=== PATIENT | male | born 1965 | race Caucasian/White ===

== ENCOUNTER 2016-05-09 22:15 | Observation (INO) | payer OTHER ==
[~2016-05-09] VITALS: Ht 182.9 cm; Wt 110.9 kg
[~2016-05-09 22:15] MED LIST: LOPRESSOR25 MG PO; PANTOPRAZOLE SO40 MG PO; SIMVASTATIN40 MG PO
[2016-05-10] VITALS (9 sets, daily range): BP systolic 106–132; BP diastolic 71–89
--- NOTE | 2016-05-10 04:10 | ED CLINICAL REPORT ---
Clinical Report - Physicians/Mid Levels [facility] [address] [place] [address] 05/09/2016 22:16 Patient: VAN GAN Time Seen: 22:29. Arrived- By private vehicle. Historian- patient. HISTORY OF PRESENT ILLNESS Chief Complaint: RIGHT FLANK PAIN. This started about 2 weeks ago and is still present. The problem is described as severe. It was abrupt in onset and has been intermittent and waxing/waning. No discomfort with urination, urinary frequency, testicular pain or urgency of urination. He has had severe, sharp, crampy right-sided flank pain. Similar symptoms previously: Once. Diagnosis: (unknown). REVIEW OF SYSTEMS No chills, fever, sweats, calf pain or chest pain. No cough, pedal edema, palpitations, black stools or bloody stools. No constipation, diarrhea or urinary problems. He has had nausea. He has had vomiting. The vomiting has occurred twice. No blood-tinged emesis, coffee-grounds emesis or frankly bloody emesis. All systems otherwise negative, except as recorded above. PAST HISTORY ( PCP - Ree Manning). Problems: Abdominal Pain. Hypertension. Contusion. Gastroesophageal Reflux Disease. Myocardial Infarction. Additional Surgeries: Angiogram. Hernia Repair. Knee Surgery. Medications: ASA Oral. Lopressor Oral 25mg, 2x a day. Pantoprazole Sodium Oral. Prochlorperazine. Simvastatin Oral (Tablet 40 mg) 1 tablet, daily. Allergies: None. SOCIAL HISTORY Current some days smoker (cigarette). Occasional alcohol use. No drug use. Is a local resident. He lives with spouse. FAMILY HISTORY Heart disease in first-degree relative (mother and father). ADDITIONAL NOTES The nursing notes have been reviewed. PHYSICAL EXAM Vital Signs: 05/09/2016 22:22 BP: 114/77. HR: 70. RR: 16. O2 saturation: 98%. Temp: 98.2 F. Pain level now: 10/10. Have been reviewed. Appearance: Alert. ENT: Pharynx normal. Neck: Neck supple. CVS: Heart sounds normal. Respiratory: No respiratory distress. Breath sounds normal. Abdomen: Soft. Mild tenderness in the right upper quadrant. Bowel sounds normal. No organomegaly. No mass. Back: Normal external inspection. Skin: Skin warm and dry. Normal skin color. Normal skin turgor. Extremities: Extremities exhibit normal ROM. No calf tenderness. No lower extremity edema. LABS, X-RAYS, AND EKG Abdominal CT: mildly thick walled enhancing gallbladder with suspicion of slight intraluminal sludge and trace pericholecystic fluid. This is per [employer] [facility]'s preliminary report. The study was interpreted by the radiologist and contemporaneously by me. Abdominal Sonogram: (indings consistent with acute cholecystitis with gallbladder wall thickening at 4-5 mm as well as hyperemia. No pericholecystic fluid noted. Common bile duct not well visualized however measures approximately 5 mm. Incidental renal cysts on the right noted.). The study was independently viewed by me. Laboratory Tests: UA-Culture if indicated: (GUY: 05/09/2016 23:40) ( KygRcvd 05/10/2016 00:00) Final results Test Result Flag Units (Reference) URINE COLOR YELLOW URINE APPEARANCE CLEAR URINE GLUCOSE NEGATIVE (NEGATIVE) URINE BILIRUBIN NEGATIVE (NEGATIVE) URINE KETONE NEGATIVE (NEGATIVE) URINE SPECIFIC GRAVITY >= 1.030 (1.010-1.030) URINE PH 6.0 (5.0-8.0) URINE PROTEIN TRACE (NEGATIVE) URINE UROBILINOGEN 1.0 EU/dL (0.2-1.0) URINE NITRITE NEGATIVE (NEGATIVE) URINE BLOOD NEGATIVE (NEGATIVE) URINE LEUK ESTERASE NEGATIVE (NEGATIVE) URINE RBC 0-1 rbc/hpf (0-1) URINE WBC 0-1 wbc/hpf (0-1) URINE EPITHELIAL CELLS 0-1 EPI/hpf (0-5) URINE BACTERIA TRACE (<1+) (NONE SEEN) URINE COMMENT CULT NOT INDICATED 2+ MUCOUSURINE CULTURES ARE SET-UP BASED ON THE FOLLOWING CRITERIA:POSITIVE NITRITEPOSITIVE LEUKOCYTE ESTERASEGREATER THAN 10 WHITE BLOOD CELLSMODERATE (2+) OR GREATER BACTERIA CBC w Diff: (GUY: 05/09/2016 22:30) ( Mscvd 05/09/2016 23:40) Final results Test Result Flag Units (Reference) WHITE BLOOD COUNT 6.4 K/uL (4.5-11.5) RED BLOOD COUNT 5.20 M/uL (4.50-5.90) HEMOGLOBIN 16.6 gm/dL (13.5-17.5) HEMATOCRIT 50.5 % (41.0-53.0) MEAN CELL VOLUME 97 fL (80-100) MEAN CORPUSCULAR HGB 32 pg (26-34) MEAN CORPUSCULAR HGB CONC 33 g/dL (31-37) RED CELL DISTRIBUTION WIDTH 13.3 % (11.6-14.8) PLATELET COUNT 149 L K/uL (150-400) LYMPH % 27.9 % (25-40) MONO % 6.4 % (3-14) GRANULOCYTE % 65.7 CMP: (GUY: 05/09/2016 22:30) ( MsgRcvd 05/09/2016 23:49) Final results Test Result Flag Units (Reference) GLUCOSE 104 mg/dL (70-110) BUN 19 H mg/dL (7-18) CREATININE 0.9 mg/dL (0.6-1.3) Estimated GFR >60 mL/min Estimated GFR- >60 mL/min Note: Persistent reduction over 3 months in eGFR<60 mL/min/1.73 m2 defines CKD. Patients with eGFR values>=60 mL/min/1.73 m2 may also have CKD if evidence ofpersistent proteinuria. Additional information may be foundat [email or web address].org. SODIUM 143 mmol/L (136-145) POTASSIUM 3.7 mmol/L (3.5-5.1) CHLORIDE 108 H mmol/L (98-107) CARBON DIOXIDE 24 mmol/L (21-32) CALCIUM 8.3 L mg/dL (8.5-10.1) TOTAL PROTEIN 7.3 g/dL (6.4-8.2) ALBUMIN 3.9 g/dL (3.3-5.0) BILIRUBIN, TOTAL 0.5 mg/dL (0.0-1.0) ALKALINE PHOSPHATASE 87 U/L (46-116) AST (SGOT) 21 U/L (15-37) ALT (SGPT) 49 U/L (12-78) LIPASE 135 U/L (73-393) AMYLASE 36 U/L (25-115) Urine Drug Screen: (GUY: 05/09/2016 23:40) ( MsgRcvd 05/09/2016 23:59) Final results Test Result Flag Units (Reference) AMPHETAMINE/METHAMPHETAMINE NEGATIVE (NEGATIVE) BARBITURATE NEGATIVE (NEGATIVE) BENZODIAZEPINE NEGATIVE (NEGATIVE) CANNABINOID NEGATIVE (NEGATIVE) COCAINE NEGATIVE (NEGATIVE) ECSTASY NEGATIVE (NEGATIVE) METHADONE NEGATIVE (NEGATIVE) OPIATE NEGATIVE (NEGATIVE) The urine drug screen is a qualitative screening test fordrug overdose and abuse. All screen results should beconsidered as presumptive.Drugs screened for are as follows:BenzodiazepinesCocaineAmphetamines/MetamphetaminesTHC (Tetrahydrocannabinol)OpiatesBarbituratesEcstasyMethadonePositive results are unconfirmed. For confirmation, notifythe lab for the specimen to be sent to the reference lab.All confirmations must be performed by a differentmethodology.The ingestion of natural herbal and plant productscontaining Ephedra/Ephedra metabolites can produce in urineone or more substances capable of cross reacting withamphetamine/methamphetamine immunoassays. These testsprovide a preliminary result only. A more specificalternative chemical method must be used to obtain aconfirmed analytical result. . PROGRESS AND PROCEDURES Course of Care: EXAM(S): US ABDOMEN ULTRASOUND - LIMITED DATE OF EXAM(S): 01/23/2015 PROCEDURE: US ABDOMEN ULTRASOUND - LIMITED INDICATIONS: RUQ PAIN TECHNIQUE: Haley-scale and Color Doppler sonographic images of the right upper quadrant of the abdomen were obtained. COMPARISON: None. FINDINGS: The liver is normal in size, and contour, but diffusely increased in echotexture. No intrahepatic biliary dilatation. The retrohepatic inferior vena cava and portal vein demonstrate patency and appropriate direction of flow. The gallbladder is normal without stones or sludge. The wall thickness measures 1.7 mm . The extrahepatic common duct measures 5.1 mm . There is no pericholecystic fluid or Donato's sign. The abdominal aorta is normal caliber. The pancreas was not well seen. The right kidney measures 11.7 cm in length. Multiple cysts, largest measuring 3.4 cm. No hydronephrosis or stone. No free fluid in the right upper quadrant. IMPRESSION: 1. Normal gallbladder. 2. Mild hepatic steatosis. 3. Right renal cysts. 4. Nonvisualization of the pancreas. Electronically signed by: DANDRE ORDAZ MD 01/24/2015 01:18. Consult obtained from surgery. Papa. Case discussed. Phone consult only. Will see patient in the hospital. Patient/family counseled. Old medical records reviewed. Disposition orders written (in [facility] and Dr. Elam's cholecystectomy orders have been completed). Disposition: Admitted. Observation. CLINICAL IMPRESSION Acute cholecystitis. (Electronically signed by Taqueria Burrell MD 05/10/2016 6:48)
--- NOTE | 2016-05-10 04:10 | ED ORDER SUMMARY ---
..... Patient: VAN GAN OrderSheet Merged With [facility] VisitID: [id number] [place] [address] 50y, M Registration Date/Time: 05/09/2016 ORDER SHEET Weight: 107.9 kg (stated) Allergies: None GENERAL ORDERS: UA-Culture if indicated Urgent (22:29 05/09/2016 Risa AVENDANO) (Ack 22:38 SRedmond) (23:43 CHagshashank ER Combiner Operator) Urine Drug Screen Urgent (23:12 05/09/2016 Risa AVENDANO) (Ack 23:15 CHagshashank ER Combiner Operator) (23:43 Lyric ER Combiner Operator) CBC w Diff Urgent (23:33 05/09/2016 Risa AVENDANO) (Ack 23:34 SRemallory) (23:43 Phoebeelli R.N.) CMP Urgent (23:33 05/09/2016 Risa AVENDANO) (Ack 23:34 SRemelissaond) (23:43 Phoebeelli R.N.) Amylase Urgent (23:33 05/09/2016 Risa AVENDANO) (Ack 23:34 SRemelissaond) (23:43 Phoebeelli R.N.) Lipase Urgent (23:33 05/09/2016 Risa AVENDANO) (Ack 23:34 SRemallory) (23:43 Phoebeelli R.N.) CT Abd/Pel w Cont (No) (See report) Urgent (00:54 05/10/2016 Risa AVENDANO) (Ack 0:59 Lyric ER Combiner Operator) (1:20 Lyric ER Combiner Operator) US Abdomen Limited (Yes) Urgent (02:08 05/10/2016 Risa AVENDANO) (Ack 2:14 SRedmond) (4:50 Adalberto) Blood Culture (No) (N/A) Urgent (04:05 05/10/2016 Risa AVENDANO) (Ack 4:09 SRedmond) (5:03 Phoebeelli R.N.) MEDICATION ORDERS: IV FLUIDS: IV Saline Lock (22:34 05/09/2016 Aroldo R.N. verbal order read back to Risa AVENDANO) (22:35 Phoebeelli R.N.) IV NS : initial bolus 1000 mL (1000 mL/hr), then 150 mL/hr for 4h (NOW); Urgent (22:46 05/09/2016 Risa AVENDANO) (22:57 Aroldo FitzgeraldN.) Toradol IV 30 mg (NOW) (23:23 05/09/2016 Risa AVENDANO) (23:43 Aroldo R.N.) Zofran IV 4 mg (NOW) (00:00 05/10/2016 Aroldo Mireles.N. verbal order read back to Risa AVENDANO) (0:01 Aroldo R.N.) Dilaudid IV 0.5 mg (HIGH ALERT MEDICATION, NOW) (00:02 05/10/2016 Aroldo FitzgeraldNIra verbal order read back to Risa AVENDANO) (0:03 Aroldo Mireles.N.) Cefotetan IV 1 gm (NOW) (04:05 05/10/2016 Risa AVENDANO) (4:51 Aroldo R.N.) IV Lactated Ringers : initial bolus none -, then 150 mL/hr (NOW) (05:04 05/10/2016 Aroldo Mireles.N. verbal order read back to Risa AVENDANO) (5:06 Aroldo R.N.) ORDER SHEET NOTES: [Electronically signed by Gomez Cesar R.N. (05:43 05/10/2016)] [Electronically signed by Taqueria Burrell MD (06:48 05/10/2016)] [Electronically locked/signed by Gomez Cesar R.N. (05:43 05/10/2016)]
--- NOTE | 2016-05-10 04:10 | ED NURSING NOTES ---
Clinical Report - Nurses [facility] [address] [place] [address] 05/09/2016 22:16 Patient: VAN GAN TRIAGE Triage time 22:20 May 09 2016. Acuity: LEVEL 3. Chief Complaint: ABDOMINAL PAIN, NAUSEA and VOMITING. Alert. NIESHA COMA SCORE: Niesha Coma Scale: 15- eyes open spontaneously (4); best verbal response- oriented x 4 (5); best motor response- obeys commands (6). --22:32 Gomez Cesar R.N. 22:22 05/09/16. BP: 114/77. HR: 70. RR: 16. O2 saturation: 98% on room air. Temp: 98.2 F. Pain level now: 11/27. Additional comments: RUQ abdominal pain. --22:32 Gomez Cesar R.N. Weight: 107.9 kg stated. Height/Length: 72 inches Per Patient. BMI: 32.3. --22:25 Gomez Cesar R.N. Medications ASA Oral. Lopressor Oral 25mg, 2x a day. Pantoprazole Sodium Oral. Prochlorperazine. Simvastatin Oral (Tablet 40 mg) 1 tablet, daily. --22:27 Gomez Cesar R.N. Allergies None. --22:27 Gomez Cesar R.N. History Arrived by private vehicle. Historian: spouse and patient. Accompanied by spouse. Primary physician (Ree Manning, [facility]). ( RUQ Abdominal Pain radiating through/around to the back associated with N/V.). Onset. (about 2 weeks intermittently--today the pain pain started about 5 hours ago). He has had nausea and vomiting. Last oral intake by patient was (about 9 hours ago). 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 PAST MEDICAL HX: Immunizations: up-to-date. Has not received seasonal influenza immunization. SOCIAL HX: Light tobacco smoker (cigarette)- less than 1/2 a pack per day. No alcohol use or drug use. No recent travel. No infectious disease exposure. ABUSE ASSESSMENT: No report of abuse. FALL RISK ASSESSMENT: Fall risk assessment completed. No fall risk identified. NUTRITIONAL RISK ASSESSMENT: The nutritional risk assessment revealed no deficiencies. FUNCTIONAL ASSESSMENT: Functional assessment: no impairments noted. LEARNING NEEDS ASSESSMENT: The learning needs assessment revealed no barriers. SKIN INTEGRITY ASSESSMENT: Skin integrity risk assessment completed. No skin integrity risk identified. --22:32 Gomez Cesar R.N. The patient has had abdominal pain. --22:32 Gomez Cesar R.N. PROBLEMS: Abdominal Pain. Hypertension. Contusion. Gastroesophageal Reflux Disease. Myocardial Infarction. --22:29 Gomez Cesar R.N. Acute Myocardial Infarction [RuleOut]. Angina [RuleOut]. --22:29 Gomez Cesar R.N. ADDITIONAL SURGERIES: Angiogram. Hernia Repair. Knee Surgery. --22:29 Gomez Cesar R.N. Interventions ID band on patient. To treatment room. --22:32 Gomez Cesar R.N. PHYSICAL ASSESSMENT Ambulatory to room. GENERAL / NEURO / PSYCH: Alert. Oriented X 4. HEENT: Mucous membranes are pink. RESPIRATORY: Respirations not labored. CVS: Normal sinus rhythm noted. GI / : Abdomen soft. Abdominal tenderness in the right upper quadrant. Bowel sounds within normal limits. SKIN: Skin is warm and dry. --22:32 Gomez Cesar R.N. NURSING PROGRESS NOTES Patient gowned. Reassurance given. Patient identifiers checked. Call light placed in reach. Side rails up x 1. Bed placed in lowest position. Brakes of bed on. Patient ready for evaluation- chart flagged and ED physician notified. --22:33 Gomez Cesar R.N. 22:29 05/09/2016 Site #1 started via IV in the left wrist with an 20g angiocath, with aseptic technique and good blood return; one attempt. Blood drawn: rainbow set. Labeled in the presence of the patient and sent to the lab. Saline lock flushed with 10 mL saline (start by Rossana Hale RN). --22:35 Gomez Cesar R.N. 22:47 05/09/2016 Started bag #1 1000 mL IV Fluids IV NS (Saline); at 1000 mL/hr over 60 minute(s) via site #1. Allergies verified and confirmed 5 rights. IV patency established. IV site checked: no pain, redness, or swelling. IV flushed thoroughly pre- and post-medication administration. --22:57 Gomez Cesar R.N. 23:28 05/09/2016 Toradol IVP 30 mg given over 2 minute(s) via site #1. Allergies verified and confirmed 5 rights. IV patency established. IV site checked: no pain, redness, or swelling. IV flushed thoroughly pre- and post-medication administration. IVP given by RN. --23:43 Gomez Cesar R.N. Patient ID band checked for patient name and birthdate: patient confirmed. Clean catch urine collected with return of james-colored clear urine; sample sent to lab for urinalysis and drug screen. Specimen labeled in the presence of the patient. --23:43 Shai Cox ER Manual Arts Therapy Teacher 23:51 05/09/2016 Zofran (Ondansetron HCl) IVP 4 mg given over 2 minute(s) via site #1. Allergies verified and confirmed 5 rights. IV patency established. IV site checked: no pain, redness, or swelling. IV flushed thoroughly pre- and post-medication administration. IVP given by RN. --00:01 Gomez Cesar R.N. 23:58 05/09/2016 Dilaudid (HYDROmorphone HCl PF) IVP 0.5 mg given over 2 minute(s) via site #1. Allergies verified, confirmed 5 rights and sedative warning given to the patient. IV patency established. IV site checked: no pain, redness, or swelling. IV flushed thoroughly pre- and post-medication administration. IVP given by RN. --00:03 Gomez Cesar R.N. 01:00 05/10/16. BP: 111/70. HR: 68. RR: 16. O2 saturation: 94% on room air. Temp: 98 F (oral). Pain level now: 0/10. --02:12 Gomez Cesar R.N. Patient transported to OR by stretcher with tech. ([id number]). --02:22 Gomez Cesar R.N. 01:20. Patient returned from OR by stretcher with tech. --02:23 Gomez Cesar R.N. 03:00 05/10/16. BP: 106/63. HR: 68. RR: 16. O2 saturation: 92% on room air. --03:36 Gomez Cesar R.N. 03:55 05/10/16. BP: 101/66. HR: 66. RR: 16. O2 saturation: 93%. Pain level now: 02/27. --03:57 Gomez Cesar R.N. 00:05 05/10/2016 IV Fluids IV NS Bag Change: bag #1 infused. Total amount infused: 1000. STARTED bag #2 (1000 mL) at 150 mL/hr via IV pump. Confirmed 5 rights. IV patency established. IV site checked: no pain, redness, or swelling. IV flushed thoroughly. --04:21 Gomez Cesar R.N. Checked patient name, birthdate and visit number: patient confirmed. Blood samples drawn from the right antecubital space with 23g butterfly by tech ; labeled in presence of the patient and sent to lab: blood culture (1st set). --04:37 Timo Walter Checked patient name, birthdate and visit number: patient confirmed. Blood samples drawn from the left antecubital space with 23g butterfly by tech ; labeled in presence of the patient and sent to lab: blood culture (2nd set). --04:38 Timo Walter 04:30 05/10/2016 Started bag #1 1000 mL IV Fluids IV LACTATED RINGERS; at 150 mL/hr over 6 hour(s) via site #1 via IV pump. Allergies verified and confirmed 5 rights. IV patency established. IV site checked: no pain, redness, or swelling. IV flushed thoroughly pre- and post-medication administration. --05:06 Gomez Cesar R.N. <<STRICKEN ENTRY-- 04:30 05/10/2016 IV Fluids IV LACTATED RINGERS Bag Change: bag #2 infused. Total amount infused: 1000. STARTED bag #3 (1000 mL) at 150 mL/hr via IV pump. Confirmed 5 rights. IV patency established. IV site checked: no pain, redness, or swelling. IV flushed thoroughly. --05:15 Gomez Cesar R.N. --END STRIKE>> Correction. --05:25 Gomez Cesar R.N. 04:30 05/10/2016 IV Fluids IV LACTATED RINGERS Bag Change: bag #2 infused. Total amount infused: 1000. STARTED bag #3 (1000 mL) at 150 mL/hr via IV pump. Confirmed 5 rights. IV patency established. IV site checked: no pain, redness, or swelling. IV flushed thoroughly. (IV bag # 3--LR 1000mL). --05:25 Gomez Cesar R.N. 04:36 05/10/2016 Started 1 gm of CEFOTETAN IVPB in bag #1 50 mL; at 100 mL/hr over 30 minute(s) via site #1 via IV pump. Allergies verified and confirmed 5 rights. IV patency established. IV site checked: no pain, redness, or swelling. IV flushed thoroughly pre- and post-medication administration. --04:51 Gomez Cesar R.N. 04:48 05/10/2016 Site #[address] upon admission; patent, no pain and no signs of infection or infiltration. Good blood return present (IV infusing into site). --05:41 Gomez Cesar R.N. 05:00 05/10/2016 IV Fluids IV LACTATED RINGERS Continued: upon admission at the rate of 150 mL/hr. 950 mL remaining bag #3. IV patency established. IV site checked: no pain, redness, or swelling. IV flushed thoroughly. --05:09 Gomez Cesar R.N. 05:05 05/10/2016 CEFOTETAN IVPB Discontinued: bag #1 infused upon admission. Total amount infused: 50 mL. IV patency established. IV site checked: no pain, redness, or swelling. IV flushed thoroughly. --05:07 Gomez Cesar R.N. DISPOSITION / DISCHARGE 04:45 05/10/16. BP: 117/65. HR: 66 (regular). RR: 16. O2 saturation: 95%. Temp: 98.2 F (oral). Pain level now: 02/27. --04:48 Gomez Cesar R.N. Departure time: 04:48 May 10 2016. --04:48 Gomez Cesar R.N. 04:48. Transported via stretcher by nurse and transport team with monitor and IV. Report was given to a nurse via a phone call. Report included patient's care, treatment, medications, reviewed medication reconcilliation, and condition (including any recent changes or anticipated changes). All questions were answered. Report was acknowledged and care was transferred. Patient's personal items; items were placed in belongings bag and transported with the patient. --05:39 Gomez Cesar R.N. Locked/Released at 05/10/2016 5:43 by Gomez Cesar R.N.
--- NOTE | 2016-05-10 04:10 | ED CLINICAL REPORT ---
Clinical Report - Physicians/Mid Levels [facility] [address] [place] [address] 05/09/2016 22:16 Patient: VAN GAN Time Seen: 22:29. Arrived- By private vehicle. Historian- patient. HISTORY OF PRESENT ILLNESS Chief Complaint: RIGHT FLANK PAIN. This started about 2 weeks ago and is still present. The problem is described as severe. It was abrupt in onset and has been intermittent and waxing/waning. No discomfort with urination, urinary frequency, testicular pain or urgency of urination. He has had severe, sharp, crampy right-sided flank pain. Similar symptoms previously: Once. Diagnosis: (unknown). REVIEW OF SYSTEMS No chills, fever, sweats, calf pain or chest pain. No cough, pedal edema, palpitations, black stools or bloody stools. No constipation, diarrhea or urinary problems. He has had nausea. He has had vomiting. The vomiting has occurred twice. No blood-tinged emesis, coffee-grounds emesis or frankly bloody emesis. All systems otherwise negative, except as recorded above. PAST HISTORY ( PCP - eRe Manning). Problems: Abdominal Pain. Hypertension. Contusion. Gastroesophageal Reflux Disease. Myocardial Infarction. Additional Surgeries: Angiogram. Hernia Repair. Knee Surgery. Medications: ASA Oral. Lopressor Oral 25mg, 2x a day. Pantoprazole Sodium Oral. Prochlorperazine. Simvastatin Oral (Tablet 40 mg) 1 tablet, daily. Allergies: None. SOCIAL HISTORY Current some days smoker (cigarette). Occasional alcohol use. No drug use. Is a local resident. He lives with spouse. FAMILY HISTORY Heart disease in first-degree relative (mother and father). ADDITIONAL NOTES The nursing notes have been reviewed. PHYSICAL EXAM Vital Signs: 05/09/2016 22:22 BP: 114/77. HR: 70. RR: 16. O2 saturation: 98%. Temp: 98.2 F. Pain level now: 10/10. Have been reviewed. Appearance: Alert. ENT: Pharynx normal. Neck: Neck supple. CVS: Heart sounds normal. Respiratory: No respiratory distress. Breath sounds normal. Abdomen: Soft. Mild tenderness in the right upper quadrant. Bowel sounds normal. No organomegaly. No mass. Back: Normal external inspection. Skin: Skin warm and dry. Normal skin color. Normal skin turgor. Extremities: Extremities exhibit normal ROM. No calf tenderness. No lower extremity edema. LABS, X-RAYS, AND EKG Abdominal CT: mildly thick walled enhancing gallbladder with suspicion of slight intraluminal sludge and trace pericholecystic fluid. This is per [facility]'s preliminary report. The study was interpreted by the radiologist and contemporaneously by me. Abdominal Sonogram: (indings consistent with acute cholecystitis with gallbladder wall thickening at 4-5 mm as well as hyperemia. No pericholecystic fluid noted. Common bile duct not well visualized however measures approximately 5 mm. Incidental renal cysts on the right noted.). The study was independently viewed by me. Laboratory Tests: UA-Culture if indicated: (UGY: 05/09/2016 23:40) ( GagRcvd 05/10/2016 00:00) Final results Test Result Flag Units (Reference) URINE COLOR YELLOW URINE APPEARANCE CLEAR URINE GLUCOSE NEGATIVE (NEGATIVE) URINE BILIRUBIN NEGATIVE (NEGATIVE) URINE KETONE NEGATIVE (NEGATIVE) URINE SPECIFIC GRAVITY >= 1.030 (1.010-1.030) URINE PH 6.0 (5.0-8.0) URINE PROTEIN TRACE (NEGATIVE) URINE UROBILINOGEN 1.0 EU/dL (0.2-1.0) URINE NITRITE NEGATIVE (NEGATIVE) URINE BLOOD NEGATIVE (NEGATIVE) URINE LEUK ESTERASE NEGATIVE (NEGATIVE) URINE RBC 0-1 rbc/hpf (0-1) URINE WBC 0-1 wbc/hpf (0-1) URINE EPITHELIAL CELLS 0-1 EPI/hpf (0-5) URINE BACTERIA TRACE (<1+) (NONE SEEN) URINE COMMENT CULT NOT INDICATED 2+ MUCOUSURINE CULTURES ARE SET-UP BASED ON THE FOLLOWING CRITERIA:POSITIVE NITRITEPOSITIVE LEUKOCYTE ESTERASEGREATER THAN 10 WHITE BLOOD CELLSMODERATE (2+) OR GREATER BACTERIA CBC w Diff: (GUY: 05/09/2016 22:30) ( Mscvd 05/09/2016 23:40) Final results Test Result Flag Units (Reference) WHITE BLOOD COUNT 6.4 K/uL (4.5-11.5) RED BLOOD COUNT 5.20 M/uL (4.50-5.90) HEMOGLOBIN 16.6 gm/dL (13.5-17.5) HEMATOCRIT 50.5 % (41.0-53.0) MEAN CELL VOLUME 97 fL (80-100) MEAN CORPUSCULAR HGB 32 pg (26-34) MEAN CORPUSCULAR HGB CONC 33 g/dL (31-37) RED CELL DISTRIBUTION WIDTH 13.3 % (11.6-14.8) PLATELET COUNT 149 L K/uL (150-400) LYMPH % 27.9 % (25-40) MONO % 6.4 % (3-14) GRANULOCYTE % 65.7 CMP: (GUY: 05/09/2016 22:30) ( MsgRcvd 05/09/2016 23:49) Final results Test Result Flag Units (Reference) GLUCOSE 104 mg/dL (70-110) BUN 19 H mg/dL (7-18) CREATININE 0.9 mg/dL (0.6-1.3) Estimated GFR >60 mL/min Estimated GFR- >60 mL/min Note: Persistent reduction over 3 months in eGFR<60 mL/min/1.73 m2 defines CKD. Patients with eGFR values>=60 mL/min/1.73 m2 may also have CKD if evidence ofpersistent proteinuria. Additional information may be foundat [email or web address]. SODIUM 143 mmol/L (136-145) POTASSIUM 3.7 mmol/L (3.5-5.1) CHLORIDE 108 H mmol/L (98-107) CARBON DIOXIDE 24 mmol/L (21-32) CALCIUM 8.3 L mg/dL (8.5-10.1) TOTAL PROTEIN 7.3 g/dL (6.4-8.2) ALBUMIN 3.9 g/dL (3.3-5.0) BILIRUBIN, TOTAL 0.5 mg/dL (0.0-1.0) ALKALINE PHOSPHATASE 87 U/L (46-116) AST (SGOT) 21 U/L (15-37) ALT (SGPT) 49 U/L (12-78) LIPASE 135 U/L (73-393) AMYLASE 36 U/L (25-115) Urine Drug Screen: (GUY: 05/09/2016 23:40) ( MsgRcvd 05/09/2016 23:59) Final results Test Result Flag Units (Reference) AMPHETAMINE/METHAMPHETAMINE NEGATIVE (NEGATIVE) BARBITURATE NEGATIVE (NEGATIVE) BENZODIAZEPINE NEGATIVE (NEGATIVE) CANNABINOID NEGATIVE (NEGATIVE) COCAINE NEGATIVE (NEGATIVE) ECSTASY NEGATIVE (NEGATIVE) METHADONE NEGATIVE (NEGATIVE) OPIATE NEGATIVE (NEGATIVE) The urine drug screen is a qualitative screening test fordrug overdose and abuse. All screen results should beconsidered as presumptive.Drugs screened for are as follows:BenzodiazepinesCocaineAmphetamines/MetamphetaminesTHC (Tetrahydrocannabinol)OpiatesBarbituratesEcstasyMethadonePositive results are unconfirmed. For confirmation, notifythe lab for the specimen to be sent to the reference lab.All confirmations must be performed by a differentmethodology.The ingestion of natural herbal and plant productscontaining Ephedra/Ephedra metabolites can produce in urineone or more substances capable of cross reacting withamphetamine/methamphetamine immunoassays. These testsprovide a preliminary result only. A more specificalternative chemical method must be used to obtain aconfirmed analytical result. . PROGRESS AND PROCEDURES Course of Care: EXAM(S): US ABDOMEN ULTRASOUND - LIMITED DATE OF EXAM(S): 01/23/2015 PROCEDURE: US ABDOMEN ULTRASOUND - LIMITED INDICATIONS: RUQ PAIN TECHNIQUE: Haley-scale and Color Doppler sonographic images of the right upper quadrant of the abdomen were obtained. COMPARISON: None. FINDINGS: The liver is normal in size, and contour, but diffusely increased in echotexture. No intrahepatic biliary dilatation. The retrohepatic inferior vena cava and portal vein demonstrate patency and appropriate direction of flow. The gallbladder is normal without stones or sludge. The wall thickness measures 1.7 mm . The extrahepatic common duct measures 5.1 mm . There is no pericholecystic fluid or Donato's sign. The abdominal aorta is normal caliber. The pancreas was not well seen. The right kidney measures 11.7 cm in length. Multiple cysts, largest measuring 3.4 cm. No hydronephrosis or stone. No free fluid in the right upper quadrant. IMPRESSION: 1. Normal gallbladder. 2. Mild hepatic steatosis. 3. Right renal cysts. 4. Nonvisualization of the pancreas. Electronically signed by: DANDRE ORDAZ MD 01/24/2015 01:18. Consult obtained from surgery. Papa. Case discussed. Phone consult only. Will see patient in the hospital. Patient/family counseled. Old medical records reviewed. Disposition orders written (in [facility] and Dr. Elam's cholecystectomy orders have been completed). Disposition: Admitted. Observation. CLINICAL IMPRESSION Acute cholecystitis. (Electronically signed by Taqueria Burrell MD 05/10/2016 6:48)
--- NOTE | 2016-05-10 04:10 | ED ORDER SUMMARY ---
..... Patient: VAN GAN OrderSheet [facility] VisitID: [id number] [place] [address] 50y, M Registration Date/Time: 05/09/2016 ORDER SHEET Weight: 107.9 kg (stated) Allergies: None GENERAL ORDERS: UA-Culture if indicated Urgent (22:29 05/09/2016 Risa AVNEDANO) (Ack 22:38 SRedmond) (23:43 CHagshashank [facility] Market Manager) Urine Drug Screen Urgent (23:12 05/09/2016 Risa AVENDANO) (Ack 23:15 CHagshashank [facility] Practice Market Manager) (23:43 Lyric [facility] Market Manager) CBC w Diff Urgent (23:33 05/09/2016 Risa AVENDANO) (Ack 23:34 SRemallory) (23:43 Phoebeelli R.N.) CMP Urgent (23:33 05/09/2016 Risa AVENDANO) (Ack 23:34 SRemelissaond) (23:43 Phoebeelli R.N.) Amylase Urgent (23:33 05/09/2016 Risa AVENDANO) (Ack 23:34 SRemelissaond) (23:43 Phoebeelli R.N.) Lipase Urgent (23:33 05/09/2016 Risa AVENDANO) (Ack 23:34 SRemallory) (23:43 Phoebeelli R.N.) CT Abd/Pel w Cont (No) (See report) Urgent (00:54 05/10/2016 Risa AVENDANO) (Ack 0:59 [facility] Market Manager) (1:20 [facility] Market Manager) US Abdomen Limited (Yes) Urgent (02:08 05/10/2016 Risa AVENDANO) (Ack 2:14 SRedmond) (4:50 Adalberto) Blood Culture (No) (N/A) Urgent (04:05 05/10/2016 Risa AVENDANO) (Ack 4:09 SRedmond) (5:03 Phoebeelli R.N.) MEDICATION ORDERS: IV FLUIDS: IV Saline Lock (22:34 05/09/2016 Aroldo R.N. verbal order read back to Risa AVENDANO) (22:35 Phoebeelli R.N.) IV NS : initial bolus 1000 mL (1000 mL/hr), then 150 mL/hr for 4h (NOW); Urgent (22:46 05/09/2016 Risa AVENDANO) (22:57 Aroldo FitzgeraldN.) Toradol IV 30 mg (NOW) (23:23 05/09/2016 Risa AVENDANO) (23:43 Aroldo R.N.) Zofran IV 4 mg (NOW) (00:00 05/10/2016 Aroldo Mireles.N. verbal order read back to Risa AVENDANO) (0:01 Aroldo R.N.) Dilaudid IV 0.5 mg (HIGH ALERT MEDICATION, NOW) (00:02 05/10/2016 Aroldo FitzgeraldNIra verbal order read back to Risa AVENDANO) (0:03 Aroldo Mireles.N.) Cefotetan IV 1 gm (NOW) (04:05 05/10/2016 Risa AVENDANO) (4:51 Aroldo R.N.) IV Lactated Ringers : initial bolus none -, then 150 mL/hr (NOW) (05:04 05/10/2016 Aroldo Mireles.N. verbal order read back to Risa AVENDANO) (5:06 Aroldo R.N.) ORDER SHEET NOTES: [Electronically signed by Gomez Cesar R.N. (05:43 05/10/2016)] [Electronically signed by Taqueria Burrell MD (06:48 05/10/2016)] [Electronically locked/signed by Gomez Cesar R.N. (05:43 05/10/2016)]
--- NOTE | 2016-05-10 06:49 | ED MED RECONCILIATION SUMMARY ---
Patient: VAN GAN Medication Reconciliation Report [facility] VisitID: [id number] [address] [place] [address] 50y, M Registration Date/Time: 05/09/2016 Weight: 107.9 kg Height/Length: 72 in. BMI: 32.3 ALLERGIES: None The patient's Home Medications are listed below: THE FOLLOWING MEDICATIONS NEED TO BE RECONCILED: ASA Oral Lopressor Oral 25mg, 2x a day Pantoprazole Sodium Oral Prochlorperazine Simvastatin Oral (40 mg) 1 tablet, daily The source(s) of the original Home Medication information: Not obtained. The following Medications were given to the patient in the Emergency Department: IV NS IV Fluids bolus 0, then 1000 mL/hr, administered: 05/09/2016 10:47:00 PM Toradol [IVP] IVP 30 mg, administered: 05/09/2016 11:28:00 PM Zofran [IVP] IVP 4 mg, administered: 05/09/2016 11:51:00 PM Dilaudid [IVP] IVP 0.5 mg, administered: 05/09/2016 11:58:00 PM CEFOTETAN [IVPB] IVPB bolus 0, then 1 gm 100 mL/hr, administered: 05/10/2016 4:36:00 AM IV LACTATED RINGERS IV Fluids bolus 0, then 150 mL/hr, administered: 05/10/2016 4:30:00 AM The following Medications were prescribed to the patient: None.
--- NOTE | 2016-05-10 06:49 | ED DISCHARGE INSTRUCTIONS ---
Patient: VAN GAN General Instructions [facility] VisitID: [id number] [address] [place] [address] 50y, M Registration Date/Time: 05/09/2016 Acute cholecystitis. (Electronically signed by Taqueria Burrell MD 05/10/2016 6:48)
--- NOTE | 2016-05-10 06:49 | ED MAR SUMMARY ---
..... Medication Administration Record [facility] [address] [place] [address] Patient: VAN GAN Visit ID: [id number] 50y, M Weight: 107.9 kg Height/Length: 72 in BMI: 32.3 ALLERGIES: None Start 22:47 05/09/2016 Gomez Cesar R.N. Medication Administered: IV NS (SALINE), Dose: IV Fluids over 60 minute(s), Rate: 1000 mL/hr, Dispensed: 1000 mL bag, Site: #1 left wrist. Medication Ordered: IV NS : initial bolus 1000 mL (1000 mL/hr), then 150 mL/hr for 4h (NOW); Urgent. Given 23:28 05/09/2016 Gomez Cesar R.N. Medication Administered: TORADOL [IVP], Dose: 30 mg IVP over 2 minute(s), Site: #1 left wrist. Medication Ordered: Toradol IV 30 mg (NOW). Given 23:51 05/09/2016 Gomez Cesar R.N. Medication Administered: ZOFRAN [IVP] (ONDANSETRON HCL), Dose: 4 mg IVP over 2 minute(s), Site: #1 left wrist. Medication Ordered: Zofran IV 4 mg (NOW). Given 23:58 05/09/2016 Gomez Cesar R.N. Medication Administered: DILAUDID [IVP] (HYDROMORPHONE HCL PF), Dose: 0.5 mg IVP over 2 minute(s), Site: #1 left wrist. Medication Ordered: Dilaudid IV 0.5 mg (HIGH ALERT MEDICATION, NOW). Start 04:30 05/10/2016 Gomez Cesar R.N., Continued Upon Admission 05:00 05/10/2016 Gomez Cesar R.N. Medication Administered: IV LACTATED RINGERS, Dose: IV Fluids over 6 hour(s), Rate: 150 mL/hr, Dispensed: 1000 mL bag, Site: #1 left wrist. Medication Ordered: IV Lactated Ringers : initial bolus none -, then 150 mL/hr (NOW). Start 04:36 05/10/2016 Gomez Cesar R.N., Stop 05:05 05/10/2016 Gomez Cesar R.N. Medication Administered: CEFOTETAN [IVPB], Dose: 1 gm IVPB over 30 minute(s), Rate: 100 mL/hr, Dispensed: 50 mL bag, Site: #1 left wrist. Medication Ordered: Cefotetan IV 1 gm (NOW).
--- NOTE | 2016-05-10 06:49 | ED MAR SUMMARY ---
..... Medication Administration Record [facility] [address] [place] [address] Patient: VAN GAN Visit ID: [id number] 50y, M Weight: 107.9 kg Height/Length: 72 in BMI: 32.3 ALLERGIES: None Start 22:47 05/09/2016 Gomez Cesar R.N. Medication Administered: IV NS (SALINE), Dose: IV Fluids over 60 minute(s), Rate: 1000 mL/hr, Dispensed: 1000 mL bag, Site: #1 left wrist. Medication Ordered: IV NS : initial bolus 1000 mL (1000 mL/hr), then 150 mL/hr for 4h (NOW); Urgent. Given 23:28 05/09/2016 Gomez Cesar R.N. Medication Administered: TORADOL [IVP], Dose: 30 mg IVP over 2 minute(s), Site: #1 left wrist. Medication Ordered: Toradol IV 30 mg (NOW). Given 23:51 05/09/2016 Gomez Cesar R.N. Medication Administered: ZOFRAN [IVP] (ONDANSETRON HCL), Dose: 4 mg IVP over 2 minute(s), Site: #1 left wrist. Medication Ordered: Zofran IV 4 mg (NOW). Given 23:58 05/09/2016 Gomez Cesar R.N. Medication Administered: DILAUDID [IVP] (HYDROMORPHONE HCL PF), Dose: 0.5 mg IVP over 2 minute(s), Site: #1 left wrist. Medication Ordered: Dilaudid IV 0.5 mg (HIGH ALERT MEDICATION, NOW). Start 04:30 05/10/2016 Gomez Cesar R.N., Continued Upon Admission 05:00 05/10/2016 Gomez Cesar R.N. Medication Administered: IV LACTATED RINGERS, Dose: IV Fluids over 6 hour(s), Rate: 150 mL/hr, Dispensed: 1000 mL bag, Site: #1 left wrist. Medication Ordered: IV Lactated Ringers : initial bolus none -, then 150 mL/hr (NOW). Start 04:36 05/10/2016 Gomez Cesar R.N., Stop 05:05 05/10/2016 Gomez Cesar R.N. Medication Administered: CEFOTETAN [IVPB], Dose: 1 gm IVPB over 30 minute(s), Rate: 100 mL/hr, Dispensed: 50 mL bag, Site: #1 left wrist. Medication Ordered: Cefotetan IV 1 gm (NOW).
--- NOTE | 2016-05-10 06:49 | ED DISCHARGE INSTRUCTIONS ---
Patient: VAN GAN General Instructions [facility] VisitID: [id number] [address] [place] [address] 50y, M Registration Date/Time: 05/09/2016 Acute cholecystitis. (Electronically signed by Taqueria Burrell MD 05/10/2016 6:48)
--- NOTE | 2016-05-10 06:49 | ED MED RECONCILIATION SUMMARY ---
Patient: VAN GAN Medication Reconciliation Report [facility] VisitID: [id number] [address] [place] [address] 50y, M Registration Date/Time: 05/09/2016 Weight: 107.9 kg Height/Length: 72 in. BMI: 32.3 ALLERGIES: None The patient's Home Medications are listed below: THE FOLLOWING MEDICATIONS NEED TO BE RECONCILED: ASA Oral Lopressor Oral 25mg, 2x a day Pantoprazole Sodium Oral Prochlorperazine Simvastatin Oral (40 mg) 1 tablet, daily The source(s) of the original Home Medication information: Not obtained. The following Medications were given to the patient in the Emergency Department: IV NS IV Fluids bolus 0, then 1000 mL/hr, administered: 05/09/2016 10:47:00 PM Toradol [IVP] IVP 30 mg, administered: 05/09/2016 11:28:00 PM Zofran [IVP] IVP 4 mg, administered: 05/09/2016 11:51:00 PM Dilaudid [IVP] IVP 0.5 mg, administered: 05/09/2016 11:58:00 PM CEFOTETAN [IVPB] IVPB bolus 0, then 1 gm 100 mL/hr, administered: 05/10/2016 4:36:00 AM IV LACTATED RINGERS IV Fluids bolus 0, then 150 mL/hr, administered: 05/10/2016 4:30:00 AM The following Medications were prescribed to the patient: None.
--- NOTE | 2016-05-10 07:58 | DIAGNOSTIC IMAGING REPORT ---
PROCEDURE: ABDOMEN/PELVIS WITH CONTRAST CLINICAL INDICATION: ABDOMINAL PAIN TECHNIQUE: 145 ml of Isovue 300 were injected intravenously and axial images were obtained of the abdomen and pelvis with sagittal and coronal reformations. COMPARISON: None. FINDINGS: ABDOMEN: Bibasilar parenchymal scarring. Normal sized heart. No hiatal hernia. 12 mm hypodensity in the medial left lobe of the liver. The gallbladder wall is hyperemic with small amount of dependent hyperdense material. Trace amount of pericholecystic fluid is seen. Multiple cysts in each kidney. The pancreas and spleen are normal. The abdominal aorta is normal in its course and caliber. Minimal atherosclerosis. There are no suspicious calcifications, retroperitoneal adenopathy or masses. The stomach, upper bowel loops, and mesentery are normal. Small fat containing umbilical hernia. No free fluid or inflammation. PELVIS: The appendix and pelvic small bowel loops are normal. Normal amount of stool in the colon and rectum. The prostate gland, seminal vesicles, urinary bladder, and pelvic vessels are normal. No adenopathy, free fluid, or pelvic mass. Degenerative disc endplate changes at the L3-4 and L5-S1 levels. IMPRESSION: 1. Findings of mild gallbladder wall inflammation suspicious for acute cholecystitis. Right upper quadrant ultrasound recommended. 2. Normal appendix. 3. Renal cysts. 4. Preliminary report [facility] scans at this facility use dose modulation, iterative reconstruction, and/or weight-based dosing when appropriate to reduce radiation dose to as low as reasonably achievable.
--- NOTE | 2016-05-10 08:02 | DIAGNOSTIC IMAGING REPORT ---
PROCEDURE: US ABDOMEN ULTRASOUND-LIMITED INDICATION: RUQ PAIN TECHNIQUE: Haley scale and color Doppler sonographic images were obtained of the right upper quadrant. COMPARISON: CT performed the same day and ultrasound 01/23/2015 FINDINGS: The liver is normal size and mildly hyperechoic in echo texture. A 1.2 cm simple cyst is present in the medial left lobe. No mass or biliary dilatation. There is echogenic dependent calcification measuring about 1.3 cm and sludge within a distended gallbladder. The gallbladder wall is thickened measuring 4.6 mm. The wall is hyperemic. The extrahepatic common duct was difficult to see the measures approximately 5 mm. No Donato's sign per the technologist. The visible portion of the inferior vena cava, abdominal aorta, and portal vein appear normal with appropriate direction of flow in the portal vein. The right kidney contains multiple cysts and is measuring 11.6 centimeters in length. No hydronephrosis. No free fluid in the right upper quadrant. IMPRESSION: 1. Cholelithiasis and findings suggestive of acute cholecystitis. 2. Right renal cysts. 3. Hepatic cyst.
--- NOTE | 2016-05-10 12:53 | CONSULTATION REPORT ---
DATE OF CONSULTATION: 05/10/2016 CHIEF COMPLAINT: 1. Right upper quadrant abdominal pain HISTORY OF PRESENT ILLNESS: The patient is a 50-year-old man presenting with a 1 -day history of worsening abdominal pain coming to the emergency room last night. He reported during the previous 2 weeks, he has had a waxing and waning discomfort episode in the same location, but it never really came to fruition until yesterday. The patient reports he had 2 episodes about a year ago with pain in the same location, radiating to the back like it is now. He reports at that time, his studies were not diagnostic. He reports no history of jaundice or pancreatitis. MEDICAL/SURGICAL HISTORY: Past medical history: Hypertension and myocardial infarction in 2009. He reports he had a cardiac catheterization, but no angioplasty or surgery was required. He also has GERD. Past surgery includes a right inguinal herniorrhaphy in 2014 and knee surgery. MEDICATIONS: 1. Aspirin daily. 2. Lopressor 25 mg b.i.d. 3. Pantoprazole daily. 4. Prochlorperazine. 5. Simvastatin 40 mg daily. ALLERGIES: 1. NONE TO MEDICATION. SOCIAL HISTORY: The patient works at [email or web address]. He is . He lives locally, takes occasional alcohol, quit smoking after his heart attack, but then has taken an occasional cigarette in the recent past. 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 FAMILY HISTORY: Parents had heart disease. REVIEW OF SYSTEMS: A multipoint review of systems was obtained yesterday by Dr. Meng in the emergency room. This was reviewed with the patient, no additional symptoms were found. PHYSICAL EXAMINATION: VITAL SIGNS: Initial vital signs: Blood pressure 114/77, respirations 16, temperature 98.2, O2 saturation 98%. GENERAL: The patient at the present time is alert and cooperative. HEENT: His ears and nose demonstrate no gross external lesions. Eyes are anicteric. His pupils are normal. NECK: Without palpable masses, bruits, or thyromegaly. CHEST: Clear to auscultation and no wheeze or rales. HEART: Regular, without murmur or gallop. ABDOMEN: Reveals localized tenderness in the right subcostal region with pain to deep palpation. There are no palpable enlargement of the liver or spleen. Bowel sounds are active. SKIN: The patient has Cloud[employer] related tattoos on his upper extremities. LAB/IMAGING: The patient's white count is 6.4, hemoglobin and hematocrit 16 and 50. His liver enzymes and his lipase and amylase are normal. Urine drug screen was negative. His CT scan showed a mildly thick walled enhancing gallbladder with suspicion of sludge and pericholecystic fluid. An ultrasound was also done, which demonstrates a thick walled gallbladder of 4-5 mm. IMPRESSION: 1. Acute cholecystitis. PLAN: I recommend the patient undergo a laparoscopic cholecystectomy and cholangiography. I explained to the patient the nature of the operation including alternatives, benefits and risks. I discussed antibiotic therapy and percutaneous drainage. I talked about risks such as infection, bleeding, scars, pain, damage to local structures, common duct injury, common duct stones and pancreatitis, as well as others. He would like to proceed as described.
--- NOTE | 2016-05-10 12:53 | CONSULTATION REPORT ---
DATE OF CONSULTATION: 05/10/2016 CHIEF COMPLAINT: 1. Right upper quadrant abdominal pain HISTORY OF PRESENT ILLNESS: The patient is a 50-year-old man presenting with a 1 -day history of worsening abdominal pain coming to the emergency room last night. He reported during the previous 2 weeks, he has had a waxing and waning discomfort episode in the same location, but it never really came to fruition until yesterday. The patient reports he had 2 episodes about a year ago with pain in the same location, radiating to the back like it is now. He reports at that time, his studies were not diagnostic. He reports no history of jaundice or pancreatitis. MEDICAL/SURGICAL HISTORY: Past medical history: Hypertension and myocardial infarction in 2009. He reports he had a cardiac catheterization, but no angioplasty or surgery was required. He also has GERD. Past surgery includes a right inguinal herniorrhaphy in 2014 and knee surgery. MEDICATIONS: 1. Aspirin daily. 2. Lopressor 25 mg b.i.d. 3. Pantoprazole daily. 4. Prochlorperazine. 5. Simvastatin 40 mg daily. ALLERGIES: 1. NONE TO MEDICATION. SOCIAL HISTORY: The patient works at [employer]. He is . He lives locally, takes occasional alcohol, quit smoking after his heart attack, but then has taken an occasional cigarette in the recent past. 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 FAMILY HISTORY: Parents had heart disease. REVIEW OF SYSTEMS: A multipoint review of systems was obtained yesterday by Dr. Meng in the emergency room. This was reviewed with the patient, no additional symptoms were found. PHYSICAL EXAMINATION: VITAL SIGNS: Initial vital signs: Blood pressure 114/77, respirations 16, temperature 98.2, O2 saturation 98%. GENERAL: The patient at the present time is alert and cooperative. HEENT: His ears and nose demonstrate no gross external lesions. Eyes are anicteric. His pupils are normal. NECK: Without palpable masses, bruits, or thyromegaly. CHEST: Clear to auscultation and no wheeze or rales. HEART: Regular, without murmur or gallop. ABDOMEN: Reveals localized tenderness in the right subcostal region with pain to deep palpation. There are no palpable enlargement of the liver or spleen. Bowel sounds are active. SKIN: The patient has [employer] related tattoos on his upper extremities. LAB/IMAGING: The patient's white count is 6.4, hemoglobin and hematocrit 16 and 50. His liver enzymes and his lipase and amylase are normal. Urine drug screen was negative. His CT scan showed a mildly thick walled enhancing gallbladder with suspicion of sludge and pericholecystic fluid. An ultrasound was also done, which demonstrates a thick walled gallbladder of 4-5 mm. IMPRESSION: 1. Acute cholecystitis. PLAN: I recommend the patient undergo a laparoscopic cholecystectomy and cholangiography. I explained to the patient the nature of the operation including alternatives, benefits and risks. I discussed antibiotic therapy and percutaneous drainage. I talked about risks such as infection, bleeding, scars, pain, damage to local structures, common duct injury, common duct stones and pancreatitis, as well as others. He would like to proceed as described.
[2016-05-10] MEDS ORDERED: NORCO1 TA1 PO (15:59)
--- NOTE | 2016-05-10 16:00 | Provider's Discharge Care Plan ---
Problem, Goal, Plan Problem List 1. Cholecystitis
--- NOTE | 2016-05-10 16:00 | Provider's Discharge Care Plan ---
Problem, Goal, Plan Problem List 1. Cholecystitis
--- NOTE | 2016-05-10 16:45 | DIAGNOSTIC IMAGING REPORT ---
PROCEDURE: XR INTRAOPERATIVE LAP BRADEN INDICATION: Surgery. Cholecystectomy. TECHNIQUE: Study performed and contrast injected by Dr. Elam. Fluoroscopy time 0.3 minutes. 19.11 mGy). COMPARISON: None. FINDINGS: AP C-arm views. Common duct is normal and there is no evidence of obstruction. IMPRESSION: 1. Negative intraoperative cholangiogram.
--- NOTE | 2016-05-10 19:35 | OPERATIVE REPORT ---
DATE OF SURGERY: 05/10/2016 SURGEON: Noam Elam MD BRANCH COORDINATOR: Ofe Goodman III, MD PREOPERATIVE DIAGNOSIS: 1. Cholelithiasis with acute and chronic cholecystitis POSTOPERATIVE DIAGNOSIS: 1. Cholelithiasis with acute and chronic cholecystitis PROCEDURE PERFORMED: 1. Laparoscopic cholecystectomy with cholangiography ANESTHESIA: General. COMPLICATIONS: No intraoperative complications were encountered. INDICATIONS: The patient is a 50-year-old man with intermittent abdominal pain. He presented with persistent abdominal pain and cholelithiasis. SURGICAL TECHNIQUE: The patient was taken to the operating room, where a general anesthetic was administered and patient prepped and draped in the usual sterile fashion. A local anesthetic of 0.5% Marcaine with epinephrine was used at each incision site. An infraumbilical incision was made and a Veress needle used to insufflate the abdominal cavity. A 10 mm cannula was passed and visualization was obtained. The gallbladder was found to be distended, thick-walled and erythematous. Three additional trocars were placed and the gallbladder was elevated. The cystic duct was isolated and a clip was placed. A fluoroscopic cholangiogram was carried out demonstrating free flow into the duodenum and no filling defects in the common duct. The cystic duct and cystic artery were clipped. There was also an accessory cystic artery posteriorly that was clipped. The gallbladder was stripped from the gallbladder fossa using cauterizing current, placed in a specimen bag, morcellated and extracted. The gallbladder bed was irrigated and hemostasis completed with coagulation and with Marcaine with epinephrine. Once hemostasis was complete, all free fluid was suctioned away from the abdominal cavity, the gas was evacuated, and the midline 10 mm sites closed with interrupted subcuticular 4-0 Vicryl suture for the skin. Steri-Strips and dressings were placed at all sites and patient left the operating room in stable condition.
[2016-05-11 03:26] VITALS: BP 119/75
[2016-05-11 06:47] VITALS: BP 116/77
== END 2016-05-11 10:40 | disposition home or self-care (01) ==
LOC: ED SRH 22:15 → ACUTE2 SRH 05-10 04:09 → TRANS SRH 05-10 04:09 → ACUTE2 SRH 05-10 05:27 → TRANS SRH 05-10 05:27 → ACUTE2 SRH 05-10 05:27
PROVIDERS: ADMIT Surgery
PROC: 0FT44ZZ Resection of Gallbladder, Percutaneous Endoscopic Approach (ICD-10-PCS; principal; 2016-05-10 16:15)
PROC: BF101ZZ Fluoroscopy of Bile Ducts using Low Osmolar Contrast (ICD-10-PCS; principal; 2016-05-10 16:15)
DX: K80.12 Calculus of gallbladder with acute and chronic cholecystitis without obstruction (principal); K21.9 Gastro-esophageal reflux disease without esophagitis; I10 Essential (primary) hypertension; I25.2 Old myocardial infarction; Z87.891 Personal history of nicotine dependence
CPT/HCPCS: 29229; 29230; 29250; 29259; 50002; 60001; 70002; 80102; 80248; 82794; 82807; 83338; 83339; 83348; 83587; 83920; 83937; 83982; 84038; 90004; 90065; 90100; 92235; 92530; 92760; 92761; 92762; 92763; 92764; 92765; 92766; 92767; 95059